=== PATIENT | female | born 1950 | race African-American/Black ===

== ENCOUNTER → 2018-06-09 13:30 | Emergency (ER) | payer MEDICARE ==
--- NOTE | 2018-06-09 14:15 | ED ---
Throat Pain/Nasal Congestion - HPI Summary HPI Summary: Patient is a 67-year-old female who presents emergency department for pain to right upper tooth times several days. Patient states that she wears a upper partial and recently broke it causing her to wear her old partial she does not like. She states that partial has been rubbing on her tooth and she is concern is infected. She denies fevers, chills, facial swelling, nausea, vomiting. She has not been to see her dentist yet. Sxs are mild in severity. Touching affected area makes symptoms worse. Nothing makes symptoms better. - History of Current Complaint Chief Complaint: EDDentalPain Time Seen by Provider: 06/09/18 13:43 Hx Obtained From: Patient - Allergies/Home Medications Allergies/Adverse Reactions: Allergies Allergy/AdvReac Type Severity Reaction Status Date / Time No Known Allergies Allergy Verified 06/09/18 13:40 PMH/Surg Hx/FS Hx/Imm Hx Previously Healthy: Yes Infectious Disease History: No Infectious Disease History: Denies: Traveled Outside the [place] in Last 30 Days - Family History Known Family History: Positive: Non-Contributory - Social History Occupation: Employed Full-time Lives: Alone Alcohol Use: Daily Substance Use Type: Reports: None Review of Systems Constitutional: Negative Negative: Fever, Chills Positive: Dental Pain Gastrointestinal: Negative Negative: Vomiting, Nausea Skin: Negative All Other Systems Reviewed And Are Negative: Yes Physical Exam Triage Information Reviewed: Yes Vital Signs On Initial Exam: Initial Vitals Temp Pulse Resp BP Pulse Ox 98.2 F 68 16 153/93 98 06/09/18 13:34 06/09/18 13:34 06/09/18 13:34 06/09/18 13:34 06/09/18 13:34 Vital Signs Reviewed: Yes Appearance: Positive: Well-Appearing - Pt. sitting up in bed in NAD. Very talkative. Skin: Positive: Warm, Dry Head/Face: Positive: Normal Head/Face Inspection Eyes: Positive: Normal, EOMI, TABATHA Dental: Positive: Other - Partial removed. One tooth noted to upper right frontal gum. Dental decay noted to tooth. Surround gums erythematous, edematous , and painful. No drainable abscess noted. No trismus. No facial swelling. Neck: Positive: Supple, Nontender, No Lymphadenopathy Neurological: Positive: Normal, CN Intact II-III Psychiatric: Positive: Affect/Mood Appropriate Diagnostics - Vital Signs Vital Signs Temp Pulse Resp BP Pulse Ox 06/09/18 13:34 98.2 F 68 16 153/93 98 - Laboratory Lab Statement: Any lab studies that have been ordered have been reviewed, and results considered in the medical decision making process. EENT Course/Dx - Course Course Of Treatment: Patient presenting with irritation to to gums after wearing new partial. Patient is concerned for infection. She is afebrile and very well appearing. She does have mild edema and swelling to gums without abscess. Will start on penicillin. Advised patient to see her dentist as soon as possible. To return to ER if symptoms change or worsen. Can take Tylenol for pain as directed. Patient understands and agrees with plan. - Differential Diagnoses Differential Diagnoses: Dental Abscess, Dental Caries, Gingivitis, Rajat's Angina, Periodontic Abscess - Diagnoses Provider Diagnoses: Dentalgia Discharge - Sign-Out/Discharge Documenting (check all that apply): Patient Departure Patient Received Moderate/Deep Sedation with Procedure: No - Discharge Plan Condition: Good Disposition: HOME Prescriptions: Penicillin VK TAB* [Penicillin VK 250 mg Tab*] 250 mg PO QID #40 tab Patient Education Materials: Toothache (ED) Referrals: Trina Hodge MD [Primary Care Provider] - Additional Instructions: Follow up with a dentist as soon as possible Antibiotic as directed Tylenol for pain as directed Return to ER if symptoms change or worsen - Billing Disposition and Condition Condition: GOOD Disposition: Home
[2018-06-09 14:42] VITALS: BP 137/89
== END | disposition home or self-care (01) ==
LOC: ED 13:30
DX: K08.89 Other specified disorders of teeth and supporting structures (principal)
CPT/HCPCS: 99282

== ENCOUNTER 2022-03-08 12:48 | Inpatient (IN) ==
[2022-03-08 13:12] LABS: ABS Basophils 0.1 10^3/ul (0-0.2); ABS Eosinophils 0.1 10^3/ul (0-0.6); ABS Lymphocytes 1.7 10^3/ul (1.0-4.8); ABS Monocytes 0.6 10^3/ul (0-0.8); ABS Neutrophils 2.6 10^3/ul (1.5-7.7); Eosinophil % 2.5 %; Hematocrit 38 % (35-47); Hemoglobin 13.4 g/dL (12.0-16.0); Lymphocyte % 32.9 %; Mean Corpuscular HGB Conc 35 g/dL (31-36); Mean Corpuscular Hemoglobin 31 pg (27-31); Mean Corpuscular Volume 90 fL (80-97); Mean Platelet Volume 7.8 fL (7.4-10.4); Nucleated Red Blood Cells % 0.1; Platelet Count 268 10^3/uL (150-450); Red Blood Count 4.28 10^6 /uL (3.70-4.87); Red Cell Distribution Width 13 % (10-15); White Blood Count 5.2 10^3/uL (3.5-10.8)
[2022-03-08] MEDS ORDERED: Iodixanol (CONTRAST) 320 MG/ML 100 ML SDV IV ONE (13:14)
[2022-03-08 13:37] LABS: Activated Partial Thrombo Time 28.6 seconds (26.0-38.0); INR 1.05 (0.88-1.18)
[2022-03-08 14:22] LABS: Albumin 4.2 g/dL (3.2-5.2); CO2 Carbon Dioxide 26 mmol/L (22-32); Calcium 9.4 mg/dL (8.6-10.3); Chloride 102 mmol/L (101-111); Sodium 137 mmol/L (135-145)
[2022-03-08 14:28] LABS: ALT 21 U/L (7-52); Albumin/Globulin Ratio 1.4 (1-3); Alkaline Phosphatase 42 U/L (35-149); Blood Urea Nitrogen 12 mg/dL (6-24); Cholesterol 264 mg/dL; Globulin 2.9 g/dL (2-4); Glucose 129 mg/dL (70-100); HDL Cholesterol 54.4 mg/dL; LDL Cholesterol 159 mg/dL; Total Protein 7.1 g/dL (6.4-8.9); Triglycerides 253 mg/dL; eGFR CKD-EPI 88.8 (>60)
[2022-03-08 14:35] LABS: Anion Gap 9 mmol/L (2-11)
[2022-03-08 15:10] LABS: TSH Ultra Thyroid Stim Horm 1.28 mcIU/mL (0.34-5.60)
[2022-03-08 15:21] LABS: Vitamin B12 968 pg/mL (180-914)
[2022-03-08] MEDS ORDERED: Labetalol IV 5 MG/ML 20 ml VIAL IV PUSH PRN (17:20)
[2022-03-08 18:34] LABS: Potassium Redraw 3.5 mmol/L (3.5-5.0)
[2022-03-09 06:16] LABS: ABS Basophils 0.1 10^3/ul (0-0.2); ABS Eosinophils 0.2 10^3/ul (0-0.6); ABS Lymphocytes 1.8 10^3/ul (1.0-4.8); ABS Monocytes 0.7 10^3/ul (0-0.8); ABS Neutrophils 2.3 10^3/ul (1.5-7.7); Eosinophil % 3.8 %; Hematocrit 40 % (35-47); Hemoglobin 13.6 g/dL (12.0-16.0); Lymphocyte % 35.5 %; Mean Corpuscular HGB Conc 34 g/dL (31-36); Mean Corpuscular Hemoglobin 31 pg (27-31); Mean Corpuscular Volume 90 fL (80-97); Mean Platelet Volume 7.4 fL (7.4-10.4); Nucleated Red Blood Cells % 0.1; Platelet Count 270 10^3/uL (150-450); Red Blood Count 4.44 10^6 /uL (3.70-4.87); Red Cell Distribution Width 13 % (10-15); White Blood Count 5.1 10^3/uL (3.5-10.8)
[2022-03-09 06:28] LABS: Calcium 9.3 mg/dL (8.6-10.3); Magnesium 1.7 mg/dL (1.9-2.7); Potassium 3.5 mmol/L (3.5-5.0)
[2022-03-09 06:34] LABS: eGFR CKD-EPI 79.4 (>60)
[2022-03-09] MEDS ORDERED: Magnesium Sulfate 2 gm BAG 2 GM/50 ML BAG IVPB ONE (09:54)
[2022-03-10 05:32] LABS: ABS Basophils 0.1 10^3/ul (0-0.2); ABS Eosinophils 0.2 10^3/ul (0-0.6); ABS Lymphocytes 2.1 10^3/ul (1.0-4.8); ABS Monocytes 0.7 10^3/ul (0-0.8); ABS Neutrophils 2.3 10^3/ul (1.5-7.7); Eosinophil % 3.6 %; Hematocrit 40 % (35-47); Hemoglobin 13.6 g/dL (12.0-16.0); Lymphocyte % 38.7 %; Mean Corpuscular HGB Conc 34 g/dL (31-36); Mean Corpuscular Hemoglobin 31 pg (27-31); Mean Corpuscular Volume 90 fL (80-97); Mean Platelet Volume 7.2 fL (7.4-10.4); Platelet Count 261 10^3/uL (150-450); Red Blood Count 4.41 10^6 /uL (3.70-4.87); Red Cell Distribution Width 13 % (10-15); White Blood Count 5.4 10^3/uL (3.5-10.8)
[2022-03-10 06:20] LABS: eGFR CKD-EPI 83.2 (>60)
[2022-03-12 11:51] VITALS: BP 140/96
== END 2022-03-12 13:05 | disposition home or self-care (01) | DRG 66 ==
LOC: ED 12:48 → EDHOLD 12:48 → MEDTELE 17:25
PROVIDERS: ADMIT Internal Medicine; ATTEND Internal Medicine